=== PATIENT | male | born 1945 | race Two or more races ===

== ENCOUNTER 2025-07-05 14:07 | Emergency (ER) | payer OTHER ==
[~2025-07-05] VITALS: Ht 167.6 cm; Wt 74.8 kg
[2025-07-05 17:48] LABS: BASO % 0.4 % (0.1-1.2); EOS # 0.13 (0.04-0.54); EOS % 2.9 % (0.7-7.0); LYMPH # 1.73 (1.18-3.74); LYMPH % 38.5 % (19.3-53.1); MEAN PLATELET VOLUME 10.50 fl (9.4-12.4); MONO # 0.41 (0.24-0.82); MONO % 9.1 % (4.7-12.5); NEUT # 2.19 (1.56-6.13); NEUT % 48.9 % (34.0-71.1); RED CELL DISTRIBUTION WIDTH 12.6 % (11.6-14.4)
[2025-07-05 17:51] LABS: ERYTHROCYTE SEDIMENTATION RATE 2 mm/hr (0-20)
[2025-07-05 18:08] LABS: URINE APPEARANCE Clear; URINE BILIRRUBIN Negative (NEGATIVE); URINE BLOOD Negative; URINE COLOR Yellow; URINE GLUCOSE Negative (NEGATIVE); URINE KETONE Negative (NEGATIVE); URINE LEUKOCYTE Negative; URINE NITRATE Negative; URINE PROTEIN Negative (NEGATIVE); URINE UROBILINOGEN 0.2 E.U./dl
[2025-07-05 18:15] LABS: D DIMER 0.65 MG/L
[2025-07-05 18:15] LABS: URINE BACTERIA 5.7 uL (0.0-1933); URINE RBC 2.8 uL (0.0-20.8)
[2025-07-05 18:16] LABS: INR 1.05
[2025-07-05 18:18] LABS: ALT/SGPT 26 U/L (12-78); AST/SGOT 18 U/L (15-37); BILIRUBIN TOTAL 1.38 mg/dL (0.3-1.2); BUN CREA RATIO 13 (7.0-25.0); CREATININE SERUM 0.96 mg/dL (0.70-1.30); GFR 75.36; GLOBULINA 3.3 G/DL (2.4-3.5); GLUCOSE FASTING 154 mg/dL (65-100); OSMOLALITY SERUM 286 MOSM/KG (275-295)
[2025-07-05 18:25] LABS: URINE CAST 0.00 uL (0.0-1.40); URINE EPITHELIAL CELLS 0.0 uL (0.0-38.8); URINE WBC 0.3 uL (0.0-23.2)
== END 2025-07-05 22:18 | disposition home or self-care (01) ==
LOC: ER 14:08
PROVIDERS: Physician Assistant Medical
DX: S80.12XA Contusion of left lower leg, initial encounter (principal); Z88.6 Allergy status to analgesic agent; I10 Essential (primary) hypertension